=== PATIENT | female | born 1945 | race Two or more races ===

== ENCOUNTER 2018-09-05 11:44 | Outpatient (CLI) | payer OTHER | END 2018-09-05 11:48 | disposition home or self-care (01) | LOC: MAMO-SONO 11:44 | DX: Z12.31 Encounter for screening mammogram for malignant neoplasm of breast (principal); Z87.898 Personal history of other specified conditions; N60.11 Diffuse cystic mastopathy of right breast ==

== ENCOUNTER 2018-09-05 13:49 | Outpatient (CLI) | payer OTHER | END 2018-09-05 14:00 | disposition home or self-care (01) | LOC: NUCLEAR 13:49 | DX: M81.0 Age-related osteoporosis without current pathological fracture (principal); C50.412 Malignant neoplasm of upper-outer quadrant of left female breast; I10 Essential (primary) hypertension; E78.2 Mixed hyperlipidemia; Z98.61 Coronary angioplasty status; Z95.5 Presence of coronary angioplasty implant and graft; D05.12 Intraductal carcinoma in situ of left breast ==

== ENCOUNTER 2018-09-09 11:11 | Outpatient (CLI) | payer OTHER | END 2018-09-09 16:42 | disposition home or self-care (01) | LOC: RAD 11:11 | DX: D68.8 Other specified coagulation defects (principal); Z01.818 Encounter for other preprocedural examination ==

== ENCOUNTER 2018-09-12 10:48 | Outpatient (CLI) | payer OTHER | END 2018-09-12 11:07 | disposition home or self-care (01) | LOC: SONOGRAMA 10:48 | DX: S96.912A Strain of unspecified muscle and tendon at ankle and foot level, left foot, initial encounter (principal) ==

== ENCOUNTER 2019-03-30 10:51 | Outpatient (CLI) | payer OTHER | END 2019-03-30 10:53 | disposition home or self-care (01) | LOC: RAD 10:51 | DX: M53.3 Sacrococcygeal disorders, not elsewhere classified (principal) ==

== ENCOUNTER → 2019-05-16 08:17 | Outpatient (CLI) | payer OTHER | END | disposition home or self-care (01) | LOC: LAB 08:17 | DX: E78.2 Mixed hyperlipidemia (principal); C50.412 Malignant neoplasm of upper-outer quadrant of left female breast; R97.8 Other abnormal tumor markers; E06.5 Other chronic thyroiditis; E03.8 Other specified hypothyroidism; Z95.5 Presence of coronary angioplasty implant and graft; D51.1 Vitamin B12 deficiency anemia due to selective vitamin B12 malabsorption with proteinuria; D50.8 Other iron deficiency anemias; D51.3 Other dietary vitamin B12 deficiency anemia; D51.8 Other vitamin B12 deficiency anemias; E11.9 Type 2 diabetes mellitus without complications; I10 Essential (primary) hypertension ==

== ENCOUNTER 2019-09-19 12:16 | Outpatient (CLI) | payer OTHER | END 2019-09-19 14:11 | disposition home or self-care (01) | LOC: MAMO-SONO 12:16 | DX: N60.11 Diffuse cystic mastopathy of right breast (principal); Z12.31 Encounter for screening mammogram for malignant neoplasm of breast ==

== ENCOUNTER 2019-12-28 08:11 | Outpatient (CLI) | payer OTHER | END 2019-12-28 08:21 | disposition home or self-care (01) | LOC: NUCLEAR 08:11 | DX: C50.412 Malignant neoplasm of upper-outer quadrant of left female breast (principal); I10 Essential (primary) hypertension; E78.2 Mixed hyperlipidemia; Z95.5 Presence of coronary angioplasty implant and graft; E03.8 Other specified hypothyroidism; R73.01 Impaired fasting glucose; M54.5 Low back pain | CPT/HCPCS: 78816; A9552 ==

== ENCOUNTER → 2020-06-12 | Outpatient (CLI) | payer OTHER | END | disposition home or self-care (01) | LOC: TOM 12:06 | PROVIDERS: ATTEND Internal Medicine | DX: R42 Dizziness and giddiness (principal) ==

== ENCOUNTER 2020-10-08 11:52 | Outpatient (CLI) | payer OTHER | END 2020-10-08 12:23 | disposition home or self-care (01) | LOC: MAMO-SONO 11:52 | PROVIDERS: ATTEND Internal Medicine Hematology & Oncology | DX: D24.1 Benign neoplasm of right breast (principal); D24.2 Benign neoplasm of left breast; C50.412 Malignant neoplasm of upper-outer quadrant of left female breast; I10 Essential (primary) hypertension; E78.2 Mixed hyperlipidemia; Z95.5 Presence of coronary angioplasty implant and graft; E03.8 Other specified hypothyroidism; R73.01 Impaired fasting glucose; M54.5 Low back pain; Z12.31 Encounter for screening mammogram for malignant neoplasm of breast ==

== ENCOUNTER 2021-10-06 08:37 | Outpatient (CLI) | payer OTHER | END 2021-10-06 08:46 | disposition home or self-care (01) | LOC: MRI 08:37 → MAMO-SONO 10-10 10:15 | PROVIDERS: ATTEND Physical Medicine & Rehabilitation | DX: M47.892 Other spondylosis, cervical region (principal); M54.12 Radiculopathy, cervical region | CPT/HCPCS: 72141 ==

== ENCOUNTER 2021-12-10 10:22 | Outpatient (CLI) | payer OTHER | END 2021-12-10 10:39 | disposition home or self-care (01) | LOC: MAMO-SONO 10:22 | PROVIDERS: ATTEND Internal Medicine Hematology & Oncology | DX: N64.59 Other signs and symptoms in breast (principal); Z12.31 Encounter for screening mammogram for malignant neoplasm of breast; I10 Essential (primary) hypertension; E78.2 Mixed hyperlipidemia; Z95.5 Presence of coronary angioplasty implant and graft; E03.8 Other specified hypothyroidism; R73.01 Impaired fasting glucose; M54.59 Other low back pain ==

== ENCOUNTER 2022-07-17 07:19 | Outpatient (CLI) | payer OTHER | END 2022-07-17 07:20 | disposition home or self-care (01) | LOC: NUCLEAR 07:19 | PROVIDERS: ATTEND Internal Medicine | DX: H81.09 Meniere's disease, unspecified ear (principal) ==

== ENCOUNTER 2022-08-08 15:15 | Emergency (ER) | payer OTHER ==
[~2022-08-08] VITALS: Ht 167.6 cm; Wt 90.7 kg
[2022-08-08] MEDS ORDERED: ALENDRONATE SOD70 MG PO (15:48)
[2022-08-08] MEDS ORDERED: ELIQUIS5 MG PO (15:48)
[2022-08-08] MEDS ORDERED: SYNTHROID50 MCG PO (15:48)
[2022-08-08] MEDS ORDERED: LETROZOLE2.5 MG PO (15:49)
[2022-08-08] MEDS ORDERED: ATORVASTATIN CA20 MG PO (15:49)
[2022-08-08] MEDS ORDERED: CLONAZEPAM0.5 MG PO (15:49)
[2022-08-08] MEDS ORDERED: PANTOPRAZOLE SO40 MG PO (15:49)
[2022-08-08] MEDS ORDERED: METOPROLOL SUC100 MG PO (15:50)
[2022-08-08] MEDS ORDERED: AMLODIPINE BESYL5 MG PO (15:50)
== END 2022-08-08 17:43 | disposition home or self-care (01) ==
LOC: ER 15:15
DX: M54.50 Low back pain, unspecified (principal)